=== PATIENT | male | born 2000 ===

== ENCOUNTER 2020-12-09 15:38 | Emergency (ER) | payer MEDICAID ==
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
--- NOTE | 2020-12-09 18:52 | XRay Report ---
ABDOMEN 1 VIEW INDICATION / CLINICAL INFORMATION: G tube replacement. COMPARISON: None available. FINDINGS: TUBES / LINES: Contrast injected through a previously placed gastrostomy tube opacifies the stomach a nd proximal small bowel as expected. BOWEL GAS PATTERN: The colon contains a large amount of stool. No other significant abnormalities. FREE AIR / EXTRALUMINAL GAS: None seen. ADDITIONAL FINDINGS: No significant additional findings. IMPRESSION: Expected positioning of a gastrostomy tube. No acute abnormality of the abdomen. Signer Name: Lonnie Bolanos MD Signed: 12/09/2020 6:48 PM Workstation Name: [id number]
[2020-12-09 19:50] VITALS: BP 128/80
== END 2020-12-09 19:49 | disposition home or self-care (01) ==
LOC: ED 15:38
DX: K94.23 Gastrostomy malfunction (principal)
CPT/HCPCS: 43762; 74018; 99283; Q9967